=== PATIENT | male | born 1945 | race Caucasian/White ===

== ENCOUNTER 2017-04-21 06:44 | Observation (INO) | payer OTHER, MEDICARE ==
[~2017-04-21] VITALS: Ht 172.7 cm; Wt 77.6 kg
--- NOTE | ~2017-04-21 | H ---
[facility] [place] [address] HISTORY AND PHYSICAL Name: DEDRA FAY Room #: 206-P [facility] M.RMichelle#: [id number] Admission: 04/21/17 Attend Phys: Joaquin Rodriguez MD Discharge: 04/22/17 Date of : 47 Report #: [id number] THIS REPORT FOR: //name// CC: Radha Rodriguez DATE OF SERVICE: 04/22/2017 REASON FOR HISTORY AND PHYSICAL: AFib. HISTORY OF PRESENT ILLNESS: The patient is a 71-year-old with history of paroxysmal atrial fibrillation, status post ablation who has had clinical recurrence and is here for repeat ablation. He denies any chest pain, shortness of breath, PND, orthopnea, presyncope, or syncope. A 12-point review of systems was performed and was otherwise negative. PAST MEDICAL HISTORY: AFib. SOCIAL HISTORY: He does not smoke. FAMILY HISTORY: Noncontributory. ALLERGIES: Have been reviewed. MEDICATIONS: Reviewed. PHYSICAL EXAMINATION: VITAL SIGNS: Reviewed and were stable. GENERAL: No acute distress. HEENT: Oropharynx clear. NECK: Supple. No thyromegaly. HEART: Regular rate and rhythm. LUNGS: Clear to auscultation bilaterally. ABDOMEN: Soft, nontender, and nondistended. EXTREMITIES: No clubbing, cyanosis, or edema. NEUROLOGIC: Cranial nerves 2-12 are intact. LABORATORY DATA: Potassium 3.7, creatinine 0.9. Coags were within normal limits. Hematology: White count, hemoglobin and platelets are normal. Telemetry, sinus rhythm. SUMMARY: The patient is a 71-year-old with AFib, who is here for elective [facility] [address] [place] [address] HISTORY AND PHYSICAL Name: DEDRA FAY Room #: 206-P [facility] Yancy MichelleMichelle#: [id number] Admission: 04/21/17 Attend Phys: Joaquin Rodriguez MD Discharge: 04/22/17 Date of : 47 Report #: [id number] repeat ablation for his atrial fibrillation. The risks and benefits have been previously documented and he is willing to proceed. By: [id number] Joaquin Rodriguez MD /nt
[~2017-04-21 06:44] MED LIST: ACETAMINOPHEN325 M1 PO; ALEVE220 MG PO; ASPIR 8181 MG PO; ASPIRIN325 PO; CENTRUM SILVER1 EAC2 PO; COUMADIN 2.5MG2.5 M1 PO; DILTIAZEM ER180 M2 PO; DILTIAZEM ER300 MG PO; EFFIENT10 MG PO; FISH OIL 1,001000 M1 PO; FISH OIL 1,001000 M2 PO; LEVOTHYROXINE0.05 MG PO; LIPITOR80 MG PO; LOPRESSOR25 PO; NORCO 5-325 TA1 EACH PO; PRADAXA150 MG PO; PROSCAR 5MG TABL5 MG PO; ULTRACET TABLET1 TAB PO; VITAMIN B-12500 MCG PO; VITAMIN D3400 UNIT PO; XALATAN2.5 ML OPHTHALMIC; XANAX 0.5 MG0.5 MG PO; ZESTRIL10 MG PO
[2017-04-21] MEDS ORDERED: XARELTO20 MG PO (07:11)
[2017-04-21] MEDS ORDERED: WELLBUTRIN 75 M75 M1 PO (07:14)
[2017-04-21] MEDS ORDERED: PRESERVISION L1 EACH PO (07:15)
[2017-04-21] MEDS ORDERED: COLACE100 MG PO (07:15)
[2017-04-21] MEDS ORDERED: DIPHENHIST50 MG PO (07:16)
[2017-04-21 07:17] VITALS: BP 159/83
[2017-04-21] MEDS ORDERED: FLEXERIL PO (07:17)
[2017-04-21 07:53] LABS: ABSOLUTE NEUTROPHILS 2.6 thou/uL (1.4-8.2); BASOPHILS 0.7 % (0.0-2.0); EOSINOPHILS 0.9 % (0.0-3.0); HEMATOCRIT 41.9 % (42.0-52.0); HEMOGLOBIN 14.6 gm/dL (14.0-18.0); LYMPHOCYTES 39.5 % (24.0-44.0); MCH 31.8 pg (26.0-34.0); MCHC 34.7 g/dL (28.0-37.0); MCV 91.6 fL (80.0-100.0); MONOCYTES 11.7 % (1.0-8.0); PLATELET COUNT 237 thou/uL (150-400); POLYS 47.2 % (36.0-66.0); RBC 4.58 mil/uL (4.50-6.00); RDW 13.4 % (10.5-14.5); WBC 5.6 thou/uL (4.0-11.0)
[2017-04-21 07:55] LABS: MANUAL DIFF NO
[2017-04-21 08:03] LABS: CREATININE 0.9 mg/dL (0.7-1.3); POTASSIUM 3.7 mmol/L (3.5-5.1)
[2017-04-21 08:07] LABS: APTT 24.3 Seconds (24.5-32.8); PROTIME 10.6 Seconds (9.3-11.4)
[2017-04-21 08:08] LABS: TOTAL BILIRUBIN 0.8 mg/dL (<0.1-1.0); TOTAL PROTEIN 7.6 g/dL (6.4-8.2)
[2017-04-21 14:30] VITALS: BP 90/55
[2017-04-21 15:15] VITALS: BP 94/60
[2017-04-21 17:00] VITALS: BP 93/57
[2017-04-21 19:40] VITALS: BP 98/64
[2017-04-21 23:26] VITALS: BP 96/58
[2017-04-22 04:24] VITALS: BP 87/54
[2017-04-22 09:05] VITALS: BP 108/65
[2017-04-22 10:29] VITALS: BP 108/65
[2017-04-22 13:42] VITALS: BP 108/65
== END 2017-04-22 13:21 | disposition home or self-care (01) ==
LOC: CATH 06:44 → 2N 15:16
PROVIDERS: Internal Medicine Cardiovascular Disease
DX: I48.0 Paroxysmal atrial fibrillation (principal); I10 Essential (primary) hypertension; E78.5 Hyperlipidemia, unspecified; E11.9 Type 2 diabetes mellitus without complications
CPT/HCPCS: 62110; 62900; 70005

== ENCOUNTER → 2017-11-29 | Outpatient (CLI) | payer OTHER, MEDICARE ==
[~2017-11-29] MED LIST changes: +COLACE100 MG PO; +DIPHENHIST50 MG PO; +FLEXERIL PO; +PRESERVISION L1 EACH PO; +WELLBUTRIN 75 M75 M1 PO; +XARELTO20 MG PO
--- NOTE | ~2017-11-29 | 2DMMODE ---
[facility] [place] [place] [address] 2 D/M-MODE ECHOCARDIOGRAM Name: DEDRA FAY SANDRAJHONY Room #: REG CL [facility]#: [id number] Admission: 11/29/17 Attend Phys: Jose Ramon Kebede MD Discharge: Date of : 47 Date of Service: 11/29/17 1058 Report #: [id number] THIS REPORT FOR: //name// APPROVED REPORT Study performed: 11/29/2017 10:16:24 EXAM: Comprehensive 2D, Doppler, and color-flow Echocardiogram Patient Location: Out-Patient Status: routine BSA: 1.95 HR: 57 bpm BP: 139/83 mmHg Rhythm: NSR Other Information Study Quality: Good Indications Afib, CAD. Hx: Ablation 2D Dimensions RVDd: 36.36 mm LVEF(%): 60.17 (>50%) IVSd: 9.34 (7-11mm) LVOT Diam: 22.62 (18-24mm) LVDd: 53.83 mm PWd: 8.96 (7-11mm) Ascending Ao: 37.91 (22-36mm) LVDs: 36.40 (25-40mm) Aortic Root: 40.41 mm Mckeon's LVEF: 60.17 % Volumes Left Atrial Volume (Systole) Single Plane 4CH: 33.74 mL Single Plane 2CH: 50.13 mL LA ESV Index: 23.00 mL/m2 Aortic Valve AoV Peak Dillan.: 1.07 m/s AO Peak Gr.: 4.56 mmHg LVOT Max P.05 mmHg LVOT Max V: 0.87 m/s MILDRED Vmax: 3.28 cm2 AI Vmax: 3.82 m/s AI Irwin: 1.54 m/s2 AI PHT: 719.85 ms [facility] [place] [address] 2 D/M-MODE ECHOCARDIOGRAM Name: DEDRA FAY Room #: REG [facility] [id number] Admission: 11/29/17 Attend Phys: Jose Ramon Kebede MD Discharge: Date of : 47 Date of Service: 11/29/17 1058 Report #: [id number] Mitral Valve E/A Ratio: 1.8 MV Decel. Time: 173.30 ms MV E Max Dillan.: 0.79 m/s MV A Dillan.: 0.45 m/s MV PHT: 50.26 ms IVRT: 55.36 ms Pulmonary Valve PV Peak Dillan.: 1.08 m/s PV Peak Gr.: 4.63 mmHg Pulmonary Vein P Vein S: 0.68 m/s P Vein A: 0.29 m/s P Vein D: 0.71 m/s P Vein A Dur.: 106.1 msec P Vein S/D Ratio: 0.96 Tricuspid Valve TR Peak Dillan.: 3.10 m/s RAP Estimate: 5.00 mmHg TR Peak Gr.: 38.39 mmHg PA Pressure: 43.00 mmHg Left Ventricle The left ventricle is normal size. There is normal LV segmental wall motion. There is normal left ventricular wall thickness. Left ventricular systolic function is normal. LVEF is 55-60%. The left ventricular diastolic function is normal. Right Ventricle The right ventricle is normal size. The right ventricular systolic function is normal. Atria The left atrium size is normal. The right atrium size is normal. Aortic Valve The aortic valve is normal in structure. Mild aortic regurgitation. There is no aortic valvular stenosis. Mitral Valve The mitral valve is normal in structure. Mild mitral annular calcification. Mild mitral regurgitation. No evidence of mitral valve stenosis. Tricuspid Valve The tricuspid valve is normal in structure. Mild to moderate [facility] [address] [place] [address] 2 D/M-MODE ECHOCARDIOGRAM Name: DEDRA FAY Room #: REG CL [facility]#: [id number] Admission: 11/29/17 Attend Phys: Jose Ramon Kebede MD Discharge: Date of : 47 Date of Service: 11/29/17 1058 Report #: [id number] tricuspid regurgitation. Estimated PAP is 40-43mmHg. Pulmonic Valve The pulmonary valve is normal in structure. Trace pulmonic regurgitation. Great Vessels Aortic root is mildly dilated at 4.0cm. Ascending aorta measures at the upper limits of normal. IVC is normal in size and collapses >50% with inspiration. Pericardium There is no pericardial effusion. <Conclusion> The left ventricle is normal size. There is normal left ventricular wall thickness. Left ventricular systolic function is normal. The right ventricle is normal size. Mild aortic regurgitation. Mild mitral regurgitation. Mild to moderate tricuspid regurgitation. Estimated PAP is 40-43mmHg. <ELECTRONICALLY SIGNED> By: Jose Ramon Kebede MD 11/29/17 1058 1058 Jose Ramon Kebede MD /INF
== END ==
LOC: CV 11-11 10:44
DX: I08.3 Combined rheumatic disorders of mitral, aortic and tricuspid valves (principal); I48.91 Unspecified atrial fibrillation; I25.10 Atherosclerotic heart disease of native coronary artery without angina pectoris; I48.92 Unspecified atrial flutter

== ENCOUNTER → 2019-12-19 | Outpatient (CLI) | payer OTHER, MEDICARE | LOC: SJCVC 09:50 | DX: I48.0 Paroxysmal atrial fibrillation (principal); R94.31 Abnormal electrocardiogram [ECG] [EKG]; I25.10 Atherosclerotic heart disease of native coronary artery without angina pectoris; I10 Essential (primary) hypertension; E78.5 Hyperlipidemia, unspecified; Z95.5 Presence of coronary angioplasty implant and graft; Z79.01 Long term (current) use of anticoagulants; Z79.82 Long term (current) use of aspirin; Z79.899 Other long term (current) drug therapy; Z82.49 Family history of ischemic heart disease and other diseases of the circulatory system; Z98.890 Other specified postprocedural states ==

== ENCOUNTER → 2019-12-28 | Outpatient (CLI) | payer OTHER, MEDICARE | LOC: SJCVC 10:16 | DX: R94.31 Abnormal electrocardiogram [ECG] [EKG] (principal); I25.10 Atherosclerotic heart disease of native coronary artery without angina pectoris; I48.0 Paroxysmal atrial fibrillation; I10 Essential (primary) hypertension; E78.00 Pure hypercholesterolemia, unspecified; Z90.49 Acquired absence of other specified parts of digestive tract; Z79.899 Other long term (current) drug therapy ==

== ENCOUNTER → 2020-07-02 | Outpatient (CLI) | payer OTHER, MEDICARE | LOC: SJCVCIMAG 06-21 11:15 | PROVIDERS: ATTEND Internal Medicine Cardiovascular Disease | DX: I08.3 Combined rheumatic disorders of mitral, aortic and tricuspid valves (principal); I27.20 Pulmonary hypertension, unspecified; R00.1 Bradycardia, unspecified; I10 Essential (primary) hypertension; I48.0 Paroxysmal atrial fibrillation; I25.10 Atherosclerotic heart disease of native coronary artery without angina pectoris; E78.00 Pure hypercholesterolemia, unspecified; Z79.899 Other long term (current) drug therapy ==

== ENCOUNTER → 2020-07-09 | Outpatient (CLI) | payer OTHER, MEDICARE | LOC: SJCVCIMAG 07:15 | PROVIDERS: ATTEND Internal Medicine Cardiovascular Disease | DX: I25.10 Atherosclerotic heart disease of native coronary artery without angina pectoris (principal); I49.3 Ventricular premature depolarization; I48.0 Paroxysmal atrial fibrillation; I10 Essential (primary) hypertension; E78.00 Pure hypercholesterolemia, unspecified; Z79.899 Other long term (current) drug therapy ==

== ENCOUNTER → 2020-10-30 | Outpatient (CLI) | payer OTHER, MEDICARE | LOC: SJCVC 10:53 | PROVIDERS: ATTEND Internal Medicine | DX: I25.10 Atherosclerotic heart disease of native coronary artery without angina pectoris (principal); R94.31 Abnormal electrocardiogram [ECG] [EKG]; R00.1 Bradycardia, unspecified; I48.0 Paroxysmal atrial fibrillation; I10 Essential (primary) hypertension; E78.00 Pure hypercholesterolemia, unspecified; E78.5 Hyperlipidemia, unspecified; Z95.5 Presence of coronary angioplasty implant and graft; Z79.82 Long term (current) use of aspirin; Z79.899 Other long term (current) drug therapy ==

== ENCOUNTER → 2021-04-30 | Outpatient (CLI) | payer OTHER, MEDICARE | LOC: SJCVC 09:49 | PROVIDERS: ATTEND Internal Medicine Cardiovascular Disease | DX: R94.31 Abnormal electrocardiogram [ECG] [EKG] (principal); R00.1 Bradycardia, unspecified; I25.10 Atherosclerotic heart disease of native coronary artery without angina pectoris; I48.0 Paroxysmal atrial fibrillation; I10 Essential (primary) hypertension; E78.00 Pure hypercholesterolemia, unspecified; Z88.8 Allergy status to other drugs, medicaments and biological substances; Z79.82 Long term (current) use of aspirin; Z79.899 Other long term (current) drug therapy ==

== ENCOUNTER → 2021-10-31 | Outpatient (CLI) | payer OTHER, MEDICARE | LOC: SJCVCIMAG 09:16 | PROVIDERS: ATTEND Internal Medicine Cardiovascular Disease | DX: R94.31 Abnormal electrocardiogram [ECG] [EKG] (principal); I08.3 Combined rheumatic disorders of mitral, aortic and tricuspid valves; R00.1 Bradycardia, unspecified; I25.10 Atherosclerotic heart disease of native coronary artery without angina pectoris; I48.0 Paroxysmal atrial fibrillation; I10 Essential (primary) hypertension; E78.00 Pure hypercholesterolemia, unspecified; Z82.49 Family history of ischemic heart disease and other diseases of the circulatory system; Z88.8 Allergy status to other drugs, medicaments and biological substances; Z79.82 Long term (current) use of aspirin; Z79.899 Other long term (current) drug therapy ==